=== PATIENT | female | born 1975 | race Two or more races ===

== ENCOUNTER 2016-10-04 21:09 | Emergency (ER) | payer BC ==
[~2016-10-04] VITALS: Ht 160 cm; Wt 63.5 kg
[2016-10-04] MEDS ORDERED: fentaNYL PF VIAL 100 MCG/2 ML VIAL IV PRN (23:15)
[2016-10-04 23:26] LABS: BILIRUBIN,URINE NEGATIVE (NEG); GLUCOSE,URINE NEGATIVE (NEG); NITRITE,URINE NEGATIVE (NEG); PROTEIN,URINE NEGATIVE (NEG-TRACE); UROBILINOGEN,URINE 0.2 mg/dL (0.2 mg/dL)
[2016-10-04] MEDS ORDERED: ONDANSETRON PF 4 MG/2 ML VIAL. IV ONE (23:30)
[2016-10-04] MEDS ORDERED: IV NORMAL SALINE 1000ML BAG 1,000 ML IV SCH (23:30)
[2016-10-04] MEDS ORDERED: FAMOTIDINE 20 MG/2 ML VIAL IVP ONE (23:30)
[2016-10-04 23:35] LABS: BACTERIA,URINE FEW /HPF (0-FEW); RBC,URINE 0 /HPF (0-2); SQUAMOUS EPITHELIAL CELL,UR MOD /LPF; YEAST,URINE PRESENT /HPF
[2016-10-04 23:48] LABS: BASO % 0 % (0-3); EOS % 0 % (0-3); HEMATOCRIT 35.2 % (36.0-47.0); HEMOGLOBIN 11.7 g/dL (12.0-15.5); LYMPH % 10 % (24-48); MEAN CORPUSCULAR HEMOGLOBIN 25 pg (25-35); MEAN CORPUSCULAR HGB CONC 33 g/dL (31-37); MEAN CORPUSCULAR VOLUME 76 fL (79-100); MONO % 4 % (0-9); NEUT % 86 % (31-73); PLATELET COUNT 326 x10^3/uL (140-400); RED BLOOD COUNT 4.65 x10^6/uL (3.50-5.40); RED CELL DISTRIBUTION WIDTH 16.3 % (11.5-14.5); WHITE BLOOD COUNT 9.5 x10^3/uL (4.0-11.0)
[2016-10-04 23:52] LABS: NEG OBC UR NEG; POS OBC UR POS
[2016-10-04 23:56] LABS: CALCIUM 9.1 mg/dL (8.5-10.1); CREATININE 0.9 mg/dL (0.6-1.0); GFR 69.3; POTASSIUM 3.1 mmol/L (3.5-5.1)
[2016-10-05 00:02] LABS: ALBUMIN 3.9 g/dL (3.4-5.0); ALBUMIN/GLOBULIN RATIO 0.8 (1.0-1.7); TOTAL BILIRUBIN 0.5 mg/dL (0.2-1.0)
--- NOTE | 2016-10-05 00:13 | RAD ---
EXAM: ABDOMEN LTD HISTORY: 41-year-old female with right upper quadrant pain and diarrhea for one day. COMPARISON: None. TECHNIQUE: Transverse and longitudinal sonography of the right upper quadrant is performed. FINDINGS: The pancreas is not well visualized. The liver demonstrates diffuse increased echogenicity. Main portal vein demonstrates normal directional flow. The liver measures approximately 18.5 cm. The right kidney measures 10.5 x 5.0 x 4.5 cm, without evidence of hydronephrosis. The gallbladder demonstrates no intraluminal gallstones, wall thickening or pericholecystic fluid. The common bile duct measures 5 mm in diameter. No free fluid is seen within the provided images. IMPRESSION: Hepatic steatosis, otherwise unremarkable right upper quadrant ultrasound. Electronically signed by: Carolyn Arshad MD (10/05/2016 12:09 AM) [facility]
--- NOTE | 2016-10-05 00:35 | PHYS DOC ---
Past Medical History Past Medical History: No Pertinent History Past Surgical History: No Surgical History Alcohol Use: None Drug Use: None Adult General Chief Complaint Chief Complaint: ABDOMINAL PAIN HPI HPI Patient is a 41 year old female who presents with complaint of abdominal pain and diarrhea that started early this morning. Patient states that she has had numerous episodes of loose stools and is having 9 out of 10 abdominal pain. Patient states that the pain is in her epigastric and right upper quadrant regions of the abdomen. Patient describes the pain as dull. The patient has not taken any medications to help with symptoms. Patient denies history of similar symptoms. Patient denies any known past medical history. Patient denies any blood in her stools. Patient denies vomiting. Review of Systems Review of Systems Constitutional: Chills [] Eyes: Denies change in visual acuity, redness, or eye pain [] HENT: Denies nasal congestion or sore throat [] Respiratory: Denies cough or shortness of breath [] Cardiovascular: Denies chest pain or edema [] GI: Abdominal pain, diarrhea, denies vomiting [] : Denies dysuria or hematuria [] Musculoskeletal: Denies back pain or joint pain [] Integument: Denies rash or skin lesions [] Neurologic: Denies headache, focal weakness or sensory changes [] Current Medications Current Medications Current Medications Medications (Trade) Dose Ordered Sig/[facility] Start Time Stop Time Status Last Admin Dose Admin Famotidine (Pepcid) 20 mg 1X ONCE 10/04/16 23:30 10/04/16 23:31 DC 10/04/16 23:31 20 MG Fentanyl Citrate (Fentanyl 2ml Vial) 50 mcg PRN Q15MIN PRN 10/04/16 23:15 10/05/16 01:47 DC 10/04/16 23:33 50 MCG Ondansetron HCl (Zofran) 4 mg 1X ONCE 10/04/16 23:30 10/04/16 23:31 DC 10/04/16 23:30 4 MG Sodium Chloride 1,000 ml @ 1,000 mls/hr Q1H 10/04/16 23:30 10/05/16 00:29 DC 10/04/16 23:25 1,000 MLS/HR Allergies Allergies Allergies Coded Allergies Type Severity Reaction Last Updated Verified No Known Drug Allergies 10/04/16 No Physical Exam Physical Exam Constitutional: Alert, afebrile, appears in moderate discomfort. [] HENT: Normocephalic, atraumatic, bilateral external ears normal, oropharynx moist, no oral exudates, nose normal. [] Eyes: PERRLA, EOMI, conjunctiva normal, no discharge. [] Neck: Normal range of motion, no tenderness, supple, no stridor. [] Cardiovascular:Heart rate regular rhythm, no murmur [] Lungs & Thorax: Bilateral breath sounds clear to auscultation [] Abdomen: Bowel sounds normal, soft, epigastric and right upper quadrant tenderness to palpation, no guarding or rebound tenderness, no masses, no pulsatile masses. [] Skin: Warm, dry, no erythema, no rash. [] Back: No tenderness, no CVA tenderness. [] Extremities: No tenderness, no cyanosis, no clubbing, ROM intact, no edema. [] Neurologic: Alert and oriented X 3, normal motor function, normal sensory function, no focal deficits noted. [] Current Patient Data Vital Signs Vital Signs Date Time Temp Pulse Resp B/P (MAP) Pulse Ox O2 Delivery O2 Flow Rate FiO2 10/05/16 01:32 101.2 105 24 145/75 (98) 97 101.2 10/05/16 00:34 Room Air Lab Values Laboratory Tests Test 10/04/16 23:05 10/04/16 23:15 White Blood Count 9.5 x10^3/uL (4.0-11.0) Red Blood Count 4.65 x10^6/uL (3.50-5.40) Hemoglobin 11.7 g/dL (12.0-15.5) L Hematocrit 35.2 % (36.0-47.0) L Mean Corpuscular Volume 76 fL (79-100) L Mean Corpuscular Hemoglobin 25 pg (25-35) Mean Corpuscular Hemoglobin Concent 33 g/dL (31-37) Red Cell Distribution Width 16.3 % (11.5-14.5) H Platelet Count 326 x10^3/uL (140-400) Neutrophils (%) (Auto) 86 % (31-73) H Lymphocytes (%) (Auto) 10 % (24-48) L Monocytes (%) (Auto) 4 % (0-9) Eosinophils (%) (Auto) 0 % (0-3) Basophils (%) (Auto) 0 % (0-3) Neutrophils # (Auto) 8.1 x10^3uL (1.8-7.7) H Lymphocytes # (Auto) 1.0 x10^3/uL (1.0-4.8) Monocytes # (Auto) 0.4 x10^3/uL (0.0-1.1) Eosinophils # (Auto) 0.0 x10^3/uL (0.0-0.7) Basophils # (Auto) 0.0 x10^3/uL (0.0-0.2) Segmented Neutrophils % 73 % (35-66) H Band Neutrophils % 8 % (0-9) Lymphocytes % 14 % (24-48) L Monocytes % 5 % (0-10) Platelet Estimate Adequate (ADEQUATE) Sodium Level 134 mmol/L (136-145) L Potassium Level 3.1 mmol/L (3.5-5.1) L Chloride Level 98 mmol/L (98-107) Carbon Dioxide Level 23 mmol/L (21-32) Anion Gap 13 (6-14) Blood Urea Nitrogen 11 mg/dL (7-20) Creatinine 0.9 mg/dL (0.6-1.0) Estimated GFR (Cockcroft-Gault) 69.3 BUN/Creatinine Ratio 12 (6-20) Glucose Level 130 mg/dL (70-99) H Calcium Level 9.1 mg/dL (8.5-10.1) Total Bilirubin 0.5 mg/dL (0.2-1.0) Aspartate Amino Transferase (AST) 35 U/L (15-37) Alanine Aminotransferase (ALT) 82 U/L (14-59) H Alkaline Phosphatase 67 U/L (46-116) Total Protein 9.0 g/dL (6.4-8.2) H Albumin 3.9 g/dL (3.4-5.0) Albumin/Globulin Ratio 0.8 (1.0-1.7) L Lipase 93 U/L (73-393) Urine Collection Type Void Urine Color Yellow Urine Clarity Clear Urine pH 6.0 Urine Specific [place] <=1.005 Urine Protein Negative mg/dL (NEG-TRACE) Urine Glucose (UA) Negative mg/dL (NEG) Urine Ketones (Stick) Negative mg/dL (NEG) Urine Blood Negative (NEG) Urine Nitrite Negative (NEG) Urine Bilirubin Negative (NEG) Urine Urobilinogen Dipstick 0.2 mg/dL (0.2 mg/dL) Urine Leukocyte Esterase Negative (NEG) Urine RBC 0 /HPF (0-2) Urine WBC 5-10 /HPF (0-4) Urine Squamous Epithelial Cells Mod /LPF Urine Bacteria Few /HPF (0-FEW) Urine Yeast Present /HPF Urine Test Negative (NEG) Laboratory Tests 10/04/16 23:05 Laboratory Tests 10/04/16 23:05 Microbiology 10/04/16 Urine Culture - Preliminary, Resulted 10/04/16 Urine Culture Result 1 (ASIF) - Preliminary, Resulted EKG EKG Not performed [] Radiology/Procedures Radiology/Procedures [facility] [address] [place] [address] IMAGING REPORT Signed PATIENT: UBALDO LECHUGA ACCOUNT: [id number] : 1975 LOCATION: ER AGE: 41 SEX: F EXAM STATUS: REG ER ORD. PHYSICIAN: ODILIA ANDREWS MD REASON: right upper quadrant abdominal pain PROCEDURE: ABDOMEN LTD EXAM: ABDOMEN LTD HISTORY: 41-year-old female with right upper quadrant pain and diarrhea for one day. COMPARISON: None. TECHNIQUE: Transverse and longitudinal sonography of the right upper quadrant is performed. FINDINGS: The pancreas is not well visualized. The liver demonstrates diffuse increased echogenicity. Main portal vein demonstrates normal directional flow. The liver measures approximately 18.5 cm. The right kidney measures 10.5 x 5.0 x 4.5 cm, without evidence of hydronephrosis. The gallbladder demonstrates no intraluminal gallstones, wall thickening or pericholecystic fluid. The common bile duct measures 5 mm in diameter. No free fluid is seen within the provided images. IMPRESSION: Hepatic steatosis, otherwise unremarkable right upper quadrant ultrasound. Electronically signed by: Evita Gallegos MD (10/05/2016 12:09 AM) [facility] DICTATED and SIGNED BY: EVITA GALLEGOS MD DATE: 10/05/16 0003 CC: ODILIA ANDREWS MD; NO PCP ~ [] Course & Med Decision Making Course & Med Decision Making Pertinent Labs and Imaging studies reviewed. (See chart for details) Ultrasound negative for acute gallbladder pathology. Patient given IV fluids and IV medications for symptomatic control. On reevaluation, patient states that she is feeling better at this time. Patient's symptoms appear consistent with a viral gastroenteritis. The patient will be discharged with prescriptions for hydrocodone and Zofran for symptomatic control. Advised follow-up with primary doctor in 2-3 days and return to emergency department for any worsening symptoms. Patient voiced understanding and in agreement with treatment plan. Dragon Disclaimer Dragon Disclaimer This electronic medical record was generated, in whole or in part, using a voice recognition dictation system. Departure Departure Impression: Primary Impression: Abdominal pain Additional Impression: Diarrhea Disposition: HOME, SELF-CARE Condition: IMPROVED Referrals: NO PCP (PCP) Patient Instructions: Abdominal Pain (Nonspecific), Diarrhea Additional Instructions: Follow-up in 2-3 days with a primary doctor. Return to the emergency department for any worsening symptoms. Scripts Hydrocodone/Apap 5-325 (NORCO 5-325 TABLET) 1 Each Tablet 1-2 TAB PO Q4-6HRS Y for PAIN, #20 TAB Prov: ODILIA ANDREWS MD 10/05/16 Ondansetron (ZOFRAN ODT) 4 Mg Tab.rapdis 1 TAB SL Q8HRS Y for NAUSEA/VOMITING, #15 TAB Prov: ODILIA ANDREWS MD 10/05/16 Problem Qualifiers Primary Impression: Abdominal pain Abdominal location: epigastric Qualified Codes: R10.13 - Epigastric pain Additional Impression: Diarrhea Diarrhea type: presumed infectious Qualified Codes: A09 - Infectious gastroenteritis and colitis, unspecified ODILIA ANDREWS MD Oct 05, 2016 00:35
[2016-10-05 00:38] LABS: PLT ESTIMATE ADEQUATE (ADEQUATE)
[2016-10-05] MEDS ORDERED: ONDA4TAB10 SL (01:17)
[2016-10-05] MEDS ORDERED: HYDR-971 PO (01:17)
[2016-10-05 01:32] VITALS: BP 145/75
[2016-10-06] MEDS ORDERED: ONDA4TAB10 PO (10:30)
[2016-10-06] MEDS ORDERED: PHEN-318 PO (10:30)
[2016-10-06] MEDS ORDERED: DIPH1TAB PO (10:30)
[2016-10-06] MEDS ORDERED: CIPR500T94 PO (10:30)
== END 2016-10-05 01:45 | disposition home or self-care (01) ==
LOC: ER 21:09
DX: A09 Infectious gastroenteritis and colitis, unspecified (principal)
CPT/HCPCS: 36415; 76705; 80053; 81001; 81025; 83690; 85007; 85027; 87086; 96361; 96374; 96375; 99285; J2405; J3010; J7030; S0028

== ENCOUNTER 2016-10-06 07:29 | Emergency (ER) | payer BC ==
[~2016-10-06 07:29] MED LIST: HYDR-971 PO; ONDA4TAB10 SL
[2016-10-06 07:53] VITALS: BP 112/67
[2016-10-06] MEDS ORDERED: IV NORMAL SALINE 1000ML BAG 1,000 ML IV SCH (08:26)
[2016-10-06] MEDS ORDERED: 0.9 % SODIUM CHLORIDE 10 ML DISP.SYRIN. IV PRN (08:30)
[2016-10-06] MEDS ORDERED: KETOROLAC TROMETHAMINE 30 MG/ML INJ. IV ONE (08:30)
[2016-10-06] MEDS ORDERED: ONDANSETRON PF 4 MG/2 ML VIAL. IV ONE (08:30)
[2016-10-06] MEDS ORDERED: MORPHINE SULFATE 4 MG/ML DISP.SYRIN. IV/SQ PRN (08:30)
--- NOTE | 2016-10-06 08:33 | PHYS DOC ---
Past Medical History Past Medical History: No Pertinent History Past Surgical History: No Surgical History Alcohol Use: None Drug Use: None Adult General Chief Complaint Chief Complaint: ABDOMINAL PAIN [facility] HPI Patient is a 41 year old female who presents with complaint of abdominal pain and diarrhea that started 4 days ago. Patient states that she has had numerous episodes of loose stools and is having 9 out of 10 abdominal pain in the left lower quadrant with radiation to her back bilaterally. Patient states that the pain is in her epigastric and right upper quadrant regions of the abdomen begun after she became nauseated and started vomiting.. Patient describes the pain as dull. The patient has the medications of Zofran and hydrocodone prescribed her 3 days ago with no improvement in her symptoms.. Patient denies history of similar symptoms. Patient denies any known past medical history. Patient denies any blood in her stools. She has not traveled outside the country not recent use of antibiotics, and has not eaten any raw food consumption or antipsychotics. She also describes a mild sore throat and frontal headache behind her eyes. Is not worse of life and sudden onset. Review of Systems Review of Systems Constitutional: Denies fever or chills [] Eyes: Denies change in visual acuity, redness, or eye pain [] HENT: Denies nasal congestion or sore throat [] Respiratory: Denies cough or shortness of breath [] Cardiovascular: No additional information not addressed in HPI [] GI: Planes of abdominal pain with nausea vomiting and diarrhea. She's been trying to take electrolytes : Denies dysuria or hematuria [] Musculoskeletal disc but with dull back pain. Integument: Denies rash or skin lesions [] Neurologic: She has a mild frontal headache but no evidence of focal weakness or numbness. Endocrine: Denies polyuria or polydipsia [] Current Medications Current Medications Current Medications Medications (Trade) Dose Ordered Sig/[facility] Start Time Stop Time Status Last Admin Dose Admin Info (Do NOT chart on this entry -- for MONITORING) 1 each PRN DAILY PRN 10/06/16 09:00 10/08/16 08:59 Iohexol (Omnipaque 300 Mg/ml) 75 ml 1X ONCE 10/06/16 09:00 10/06/16 09:01 DC 10/06/16 09:29 75 ML Ketorolac Tromethamine (Toradol) 30 mg 1X ONCE 10/06/16 08:30 10/06/16 08:32 DC 10/06/16 09:06 30 MG Lorazepam (Ativan) 1 mg 1X ONCE 10/06/16 08:30 10/06/16 08:32 DC 10/06/16 09:07 1 MG Morphine Sulfate 4 mg PRN Q15MIN PRN 10/06/16 08:30 10/07/16 08:29 10/06/16 09:06 4 MG Ondansetron HCl (Zofran) 4 mg 1X ONCE 10/06/16 08:30 10/06/16 08:32 DC 10/06/16 09:07 4 MG Sodium Chloride (Normal Saline Flush) 10 ml QSHIFT PRN 10/06/16 08:30 Allergies Allergies Allergies Coded Allergies Type Severity Reaction Last Updated Verified No Known Drug Allergies 10/04/16 No Physical Exam Physical Exam Signs stable and reviewed within normal limits. Constitutional: Well developed, well nourished, she obviously is not feeling comfortable pain is a 9 of 10. Patient is grimacing as I examined the belly. HENT: Normocephalic, atraumatic, bilateral external ears normal, oropharynx moist, no oral exudates, mild oral erythema nose normal. [] Eyes: PERRLA, EOMI, conjunctiva normal, no discharge. [] Neck: Normal range of motion, no tenderness, supple, no stridor. [] Cardiovascular:Heart rate regular rhythm, no murmur [] Lungs & Thorax: Bilateral breath sounds clear to auscultation [] Abdomen: Tenderness to palpation in the left lower quadrant without voluntary guarding rebound or organomegaly. Patient has negative McBurney's negative Schaeffer sign. Skin: Warm, dry, no erythema, no rash. [] Back: No tenderness, does have CVA tenderness bilaterally. Extremities: No tenderness, no cyanosis, no clubbing, ROM intact, no edema. [] Neurologic: Alert and oriented X 3, normal motor function, normal sensory function, no focal deficits noted. [] Psychologic is very teary-eyed but appropriate with normal judgment and mood. Current Patient Data Vital Signs Vital Signs Date Time Temp Pulse Resp B/P (MAP) Pulse Ox O2 Delivery O2 Flow Rate FiO2 10/06/16 09:06 16 10/06/16 07:53 99.1 92 112/67 (82) 97 Room Air 99.1 Lab Values Laboratory Tests Test 10/06/16 07:30 10/06/16 07:55 10/06/16 08:30 10/06/16 08:40 White Blood Count 10.6 x10^3/uL (4.0-11.0) Red Blood Count 4.57 x10^6/uL (3.50-5.40) Hemoglobin 11.5 g/dL (12.0-15.5) L Hematocrit 34.2 % (36.0-47.0) L Mean Corpuscular Volume 75 fL (79-100) L Mean Corpuscular Hemoglobin 25 pg (25-35) Mean Corpuscular Hemoglobin Concent 34 g/dL (31-37) Red Cell Distribution Width 16.0 % (11.5-14.5) H Platelet Count 281 x10^3/uL (140-400) Neutrophils (%) (Auto) 83 % (31-73) H Lymphocytes (%) (Auto) 11 % (24-48) L Monocytes (%) (Auto) 6 % (0-9) Eosinophils (%) (Auto) 0 % (0-3) Basophils (%) (Auto) 0 % (0-3) Neutrophils # (Auto) 8.8 x10^3uL (1.8-7.7) H Lymphocytes # (Auto) 1.1 x10^3/uL (1.0-4.8) Monocytes # (Auto) 0.6 x10^3/uL (0.0-1.1) Eosinophils # (Auto) 0.0 x10^3/uL (0.0-0.7) Basophils # (Auto) 0.0 x10^3/uL (0.0-0.2) Sodium Level 132 mmol/L (136-145) L Potassium Level 3.5 mmol/L (3.5-5.1) Chloride Level 98 mmol/L (98-107) Carbon Dioxide Level 21 mmol/L (21-32) Anion Gap 13 (6-14) Blood Urea Nitrogen 6 mg/dL (7-20) L Creatinine 0.8 mg/dL (0.6-1.0) Estimated GFR (Cockcroft-Gault) 79.4 Glucose Level 99 mg/dL (70-99) Calcium Level 8.2 mg/dL (8.5-10.1) L Total Bilirubin 0.3 mg/dL (0.2-1.0) Direct Bilirubin 0.1 mg/dL (0.0-0.2) Aspartate Amino Transferase (AST) 45 U/L (15-37) H Alanine Aminotransferase (ALT) 69 U/L (14-59) H Alkaline Phosphatase 51 U/L (46-116) Total Protein 8.6 g/dL (6.4-8.2) H Albumin 3.7 g/dL (3.4-5.0) Lipase 137 U/L (73-393) POC Urine HCG, Qualitative Hcg negative (Negative) Group A Streptococcus Rapid Negative (NEGATIVE) Urine Collection Type U cath Urine Color Yellow Urine Clarity Clear Urine pH 6.0 Urine Specific [place] 1.015 Urine Protein 100 mg/dL (NEG-TRACE) Urine Glucose (UA) Negative mg/dL (NEG) Urine Ketones (Stick) Trace mg/dL (NEG) Urine Blood Negative (NEG) Urine Nitrite Negative (NEG) Urine Bilirubin Negative (NEG) Urine Urobilinogen Dipstick 0.2 mg/dL (0.2 mg/dL) Urine Leukocyte Esterase Negative (NEG) Urine RBC Occ /HPF (0-2) Urine WBC Occ /HPF (0-4) Urine Transitional Epithelial Cells Occ /LPF Urine Bacteria Few /HPF (0-FEW) Urine Mucus Mod /LPF Laboratory Tests 10/06/16 07:30 Laboratory Tests 10/06/16 07:30 EKG EKG [] Radiology/Procedures Radiology/Procedures [] [address] [place] [address] IMAGING REPORT Signed PATIENT: UBALDO LECHUGA ACCOUNT: [id number] : 1975 LOCATION: ER AGE: 41 SEX: F EXAM STATUS: REG ER ORD. PHYSICIAN: CINDA BERRIOS MD REASON: lower left ab pain PROCEDURE: CT ABD PELV W/ IV CONTRST ONLY Indication lower abdominal pain. Axial images through the abdomen and pelvis were obtained. No prior CT imaging is available. The lung bases are clear. There is adenopathy in the right groin. The largest node measures 2 cm in greatest dimension. The etiology is unclear. Clinical correlation advised. No significant adenopathy is seen in the left groin. A focal mass in the liver or spleen is not seen and the gallbladder appears grossly normal. There are no adrenal masses. The kidneys appear unremarkable. No pancreatic pathology is seen. No acute finding is seen in the abdomen. In the pelvis no focal mass or inflammatory process is seen. IUD is noted. IMPRESSION: No acute finding seen in the abdomen or pelvis. Adenopathy right groin. Clinical correlation advised DICTATED and SIGNED BY: CHAKA SMITH MD DATE: 10/06/16 1000 CC: CINDA BERRIOS MD; NO PCP ~ Course & Med Decision Making Course & Med Decision Making Pertinent Labs and Imaging studies reviewed. (See chart for details) reviewed patient's nursing notes, vital signs, v history and physical and laboratory work is returned at 10:20 his laboratory work demonstrates a mild anemia of 10 and 30 with left shift 83% predominance of lymphocytes. Patient also has a urinalysis has bacteria, white blood cells with minimal epithelial cells. This may explain why she is got discomfort in her lower abdomen. Scan reviewed by mo Dr. Berrios demonstrates no occult intra-abdominal finding other than rightly inguinal lymphadenopathy with no concomitant inflammation of the bowel. No evidence of appendicitis. Patient is rapid strep test is negative. Patient's pain test is negative. Treat patient with antiemetics, antidiarrheals, and a short course of antibiotics for her UTI. Dragon Disclaimer Dragon Disclaimer This electronic medical record was generated, in whole or in part, using a voice recognition dictation system. Departure Departure Impression: Primary Impression: Abdominal pain Additional Impressions: Urinary tract infection Nausea and vomiting Diarrhea Disposition: 01 HOME, SELF-CARE Condition: IMPROVED Referrals: NO PCP (PCP) Patient Instructions: Abdominal Pain, Diarrhea, Nausea and Vomiting, Urinary Tract Infection Additional Instructions: Is return for any new or increasing symptoms or if you have any questions or concerns. Please return for any blood in her stool blood Or if you are not able to tolerate her medications orally. Scripts Diphenoxylate Hcl/Atropine (LOMOTIL TABLET) 1 Each Tablet 1 TAB PO QID, #20 TAB Prov: CINDA BERRIOS MD 10/06/16 Ondansetron (ZOFRAN ODT) 4 Mg Tab.rapdis 4 MG PO BID Y for NAUSEA/VOMITING for 5 Days, #10 TAB Prov: CINDA BERRIOS MD 10/06/16 Phenazopyridine Hcl (PYRIDIUM) 200 Mg Tablet 200 MG PO TID for 3 Days, #9 TAB Prov: CINDA BERRIOS MD 10/06/16 Ciprofloxacin Hcl (CIPRO) 500 Mg Tablet 1 TAB PO BID, #20 TAB Prov: CINDA BERRIOS MD 10/06/16 Problem Qualifiers CINDA BERRIOS MD Oct 06, 2016 08:33
[2016-10-06 08:44] LABS: BASO % 0 % (0-3); EOS % 0 % (0-3); HEMATOCRIT 34.2 % (36.0-47.0); HEMOGLOBIN 11.5 g/dL (12.0-15.5); LYMPH # 1.1 x10^3/uL (1.0-4.8); LYMPH % 11 % (24-48); MEAN CORPUSCULAR HEMOGLOBIN 25 pg (25-35); MEAN CORPUSCULAR HGB CONC 34 g/dL (31-37); MEAN CORPUSCULAR VOLUME 75 fL (79-100); MONO % 6 % (0-9); NEUT % 83 % (31-73); PLATELET COUNT 281 x10^3/uL (140-400); RED BLOOD COUNT 4.57 x10^6/uL (3.50-5.40); WHITE BLOOD COUNT 10.6 x10^3/uL (4.0-11.0)
[2016-10-06 08:55] LABS: CALCIUM 8.2 mg/dL (8.5-10.1); CREATININE 0.8 mg/dL (0.6-1.0); GFR 79.4; POTASSIUM 3.5 mmol/L (3.5-5.1)
[2016-10-06 09:00] LABS: BILIRUBIN,URINE NEGATIVE (NEG); GLUCOSE,URINE NEGATIVE (NEG); NITRITE,URINE NEGATIVE (NEG); PROTEIN,URINE 100 mg/dL (NEG-TRACE); UROBILINOGEN,URINE 0.2 mg/dL (0.2 mg/dL)
[2016-10-06] MEDS ORDERED: IOHEXOL 300 MG/ML 75 ML VIAL IV ONE (09:00)
[2016-10-06] MEDS ORDERED: CONTRAST GIVEN MC PRN (09:00)
[2016-10-06 09:06] LABS: BACTERIA,URINE FEW /HPF (0-FEW); RBC,URINE OCC /HPF (0-2); WBC,URINE OCC /HPF (0-4)
[2016-10-06 09:07] LABS: ALBUMIN 3.7 g/dL (3.4-5.0); DIRECT BILIRUBIN 0.1 mg/dL (0.0-0.2); TOTAL BILIRUBIN 0.3 mg/dL (0.2-1.0); TOTAL PROTEIN 8.6 g/dL (6.4-8.2)
[2016-10-06 09:38] LABS: NEGATIVE OBC STREP NEG; POSITIVE OBC STREP POS
--- NOTE | 2016-10-06 10:10 | RAD ---
Indication lower abdominal pain. Axial images through the abdomen and pelvis were obtained. No prior CT imaging is available. The lung bases are clear. There is adenopathy in the right groin. The largest node measures 2 cm in greatest dimension. The etiology is unclear. Clinical correlation advised. No significant adenopathy is seen in the left groin. A focal mass in the liver or spleen is not seen and the gallbladder appears grossly normal. There are no adrenal masses. The kidneys appear unremarkable. No pancreatic pathology is seen. No acute finding is seen in the abdomen. In the pelvis no focal mass or inflammatory process is seen. IUD is noted. IMPRESSION: No acute finding seen in the abdomen or pelvis. Adenopathy right groin. Clinical correlation advised
[2016-10-06] MEDS ORDERED: DIPH1TAB PO (10:30)
[2016-10-06] MEDS ORDERED: PHEN-318 PO (10:30)
[2016-10-06] MEDS ORDERED: CIPR500T94 PO (10:30)
[2016-10-06] MEDS ORDERED: ONDA4TAB10 PO (10:30)
== END 2016-10-06 10:54 | disposition home or self-care (01) ==
LOC: ER 07:29
DX: N39.0 Urinary tract infection, site not specified (principal); R19.7 Diarrhea, unspecified; J02.9 Acute pharyngitis, unspecified; R51 Headache; D64.9 Anemia, unspecified
CPT/HCPCS: 36415; 74177; 80048; 80076; 81001; 81025; 83690; 85027; 87070; 87880; 96361; 96374; 96375; 99285; J1885; J2060; J2270; J2405; J7030; Q9967